=== PATIENT | female | born 1930 | race Caucasian/White ===

== ENCOUNTER 2016-05-18 17:45 | Emergency (ER) | payer MEDICARE, OTHER ==
[~2016-05-18 17:45] MED LIST: DIOV160 PO; K500 PO; NORCO1 TA1 PO; NORV5 PO; T PO
== END 2016-05-18 22:46 | disposition home or self-care (01) ==
LOC: ER 17:45
DX: M25.511 Pain in right shoulder (principal); I10 Essential (primary) hypertension; Z90.49 Acquired absence of other specified parts of digestive tract; Z79.899 Other long term (current) drug therapy; W19.XXXA Unspecified fall, initial encounter
CPT/HCPCS: 71010; 71100-RT; 72072; 73030-RT; 99284; A9270-GY